=== PATIENT | male | born 1970 | race Caucasian/White ===

== ENCOUNTER 2022-07-12 14:38 | Emergency (ER) | payer OTHER ==
[2022-07-12 15:16] LABS: HEMOGLOBIN 14.1 gm/dl (14.0-17.5); RED BLOOD COUNT 4.85 M/UL (4.20-5.50); WHITE BLOOD COUNT 12.2 K/UL (4.5-11.0)
[2022-07-12 15:44] LABS: BUN/CREATININE RATIO 15 (0-10)
[2022-07-12] MEDS ORDERED: PROTONIX 40 MG40 M1 PO (20:01)
== END 2022-07-12 20:10 | disposition home or self-care (01) ==
LOC: ER1 14:38
DX: K29.00 Acute gastritis without bleeding (principal)
CPT/HCPCS: 71045; 80053; 81001; 82550; 82553; 83690; 84484; 85025; 85652; 86140; 93005; 96374; 96375; 99284; J1170; J2405; Q9967